=== PATIENT | female | born 1945 | race Caucasian/White ===

== ENCOUNTER 2017-10-07 18:13 | Emergency (ER) | payer MEDICARE, BC ==
[2017-10-07] MEDS ORDERED: Ketorolac Tromethamine 30 MG/ML VIAL ONE (18:58)
--- NOTE | 2017-10-07 21:09 | RAD ---
THREE VIEWS OF THE RIGHT HIP 10/07/17 INDICATION: Right hip pain for two weeks. COMPARISON: None. FINDINGS: There is hernia mesh overlying the right lower quadrant of the abdomen. There is mild degenerative ar throsis of the right hip. No acute fracture or subluxation is evident. IMPRESSION: No acute fracture or subluxation. POS: [facility]
--- NOTE | 2017-10-07 21:14 | RAD ---
THREE VIEWS OF THE LUMBAR SPINE 10/07/17 INDICATION: History of L5 fracture, hernia repair, hysterectomy with right hip pain. FINDINGS: There is mild multilevel disc degenerative and facet osteoarthritic change. No acute fracture or subl uxation is evident. Spinal alignment is preserved. The SI joints are within normal limits. IMPRESSION: Mild spondylosis. No acute osseous abnormality. Examination did not appear appreciably changed from a comparison dated 09/04/15. POS: [facility]
== END 2017-10-07 19:17 | disposition home or self-care (01) ==
LOC: SCSER 18:13
DX: M25.551 Pain in right hip (principal); I48.91 Unspecified atrial fibrillation
CPT/HCPCS: 72100; 96372; J1885

== ENCOUNTER 2017-10-18 12:49 | Emergency (ER) | payer MEDICARE, BC ==
--- NOTE | 2017-10-18 13:58 | RAD ---
CHEST PA AND LATERAL: History: 71-year-old female with cough and fever. Comparison: 06-23-17 FINDINGS: Cardiomegaly with left ICD with heart size somewhat more prominent than on the prior study. Bilateral vascular congestion with increased interstitial parenchymal changes concerning for minimal interstit ial edema. No significant confluent pneumonia. IMPRESSION: Minimal increasing heart size, developing bilateral vascular congestion and minimal interstitial joel a concerning for developing congestive heart failure. No confluent pneumonia. Short term follow up fo r clearance suggested. POS: [facility]
[2017-10-18 14:29] LABS: #Basophils 0.1 thou/uL (0.0-0.2); #Eosinphils 0.2 thou/uL (0.0-0.7); #Lymphocytes 1.6 thou/uL (1.20-3.40); #Monocytes 0.7 thou/uL (0.11-0.59); #Neutrophils 4.7 thou/uL (1.40-6.50); %Basophils 1.3 % (0.0-1.0); %Eosinophils 3.4 % (0.0-10.0); %Lymphocytes 21.9 % (21.0-51.0); %Monocytes 9.3 % (0.0-10.0); Hematocrit 33.9 % (36.0-47.0); Mean Platelet Volume 7.4 fL (7.4-10.4); Red Blood Cell (RBC) Count 3.56 mill/uL (4.20-5.40); White Blood Cell (WBC) Count 7.3 thou/uL (4.8-10.8)
[2017-10-18 14:44] LABS: Anion Gap 13 mmol/L (10-20); BUN (Urea Nitrogen) 10 mg/dL (9.8-20.1); Calc. Creatinine Clearance 0 mL/min (70-130); Calcium 9.3 mg/dL (7.8-10.44); Carbon Dioxide 27 mmol/L (23-31); Chloride 104 mmol/L (98-107); Estimated GFR-MDRD 78
[2017-10-18 14:48] LABS: Troponin I Less than 0.010 ng/mL (< 0.028)
[2017-10-18] MEDS ORDERED: predniSONE 20 MG TAB ONE (16:22)
== END 2017-10-18 16:25 | disposition home or self-care (01) ==
LOC: SCSER 12:49
DX: J45.901 Unspecified asthma with (acute) exacerbation (principal); J06.9 Acute upper respiratory infection, unspecified; B34.9 Viral infection, unspecified; I48.91 Unspecified atrial fibrillation
CPT/HCPCS: 36415; 71020; 80048; 82553; 83880; 84484; 85025; 93005; 94640; J7506; J7620

== ENCOUNTER 2018-02-12 13:49 | Emergency (ER) | payer MEDICARE, BC ==
[2018-02-12] MEDS ORDERED: Orphenadrine Citrate 60 MG/2 ML VIAL ONE (14:20)
[2018-02-12] MEDS ORDERED: HYDROcodone/Acetaminophen 10/325 mg Tablet ONE (14:20)
== END 2018-02-12 14:50 | disposition home or self-care (01) ==
LOC: SCSER 13:49
DX: M62.830 Muscle spasm of back; I48.91 Unspecified atrial fibrillation
CPT/HCPCS: 96372; J2360

== ENCOUNTER 2018-03-26 12:16 | Emergency (ER) | payer MEDICARE, BC ==
[2018-03-26] MEDS ORDERED: Morphine 5 MG/ML SYRINGE ONE (12:49)
[2018-03-26] MEDS ORDERED: Diazepam 5 MG TAB ONE (12:49)
[2018-03-26] MEDS ORDERED: Ketorolac Tromethamine 30 MG/ML VIAL ONE (12:49)
--- NOTE | 2018-03-26 14:57 | CT ---
CT OF ABDOMEN AND PELVIS PERFORMED WITHOUT CONTRAST ENHANCEMENT: Date: 03/26/18 HISTORY: Abdominal and low back pain. Pain extending into bilateral lower extremities. FINDINGS: Heart size is enlarged. Pacemaker device is present. There is some linear atelectasis or scarring in the bases. No confluent infiltrative process. The liver, spleen, and pancreas regions appear unremarkable given the limitations of a noncontrast st udy. The gallbladder has been removed. Right and left adrenal glands, and right and left kidneys are normal in size. No significant periaort ic or mesenteric adenopathy. No signs of bowel obstruction. There is anterior abdominal wall ventral hernia repair mesh noted. Minimal colonic diverticulosis is seen. Changes are slightly more pronounce d in the sigmoid region. No inflammatory process. CT of pelvis was performed without contrast enhancement. An appendix is not identified, consistent wi history. No adenopathy, mass, or free fluid. Some mild prolapse of some small bowel related to mor e of a rectal prolapse is incidentally noted. No obstruction. Review of osseous structures shows no acute bony findings. Fairly minimal arthritic changes are noted of the lumbar spine. IMPRESSION: 1. No acute abnormality to the abdomen or pelvis. 2. Colonic diverticulosis. 3. Other incidental findings as noted above. POS: [facility]
== END 2018-03-26 13:55 | disposition home or self-care (01) ==
LOC: SCSER 12:16
DX: M54.5 Low back pain (principal); I48.91 Unspecified atrial fibrillation; I49.9 Cardiac arrhythmia, unspecified
CPT/HCPCS: 74176; 96372; J2270; J1885

== ENCOUNTER 2019-06-22 08:55 | Outpatient (CLI) | payer MEDICARE, BC ==
[2019-06-22] MEDS ORDERED: Iopamidol 370 76% 100 ML VIAL ONE (09:00)
--- NOTE | 2019-06-22 13:55 | CT ---
CT OF ABDOMEN AND PELVIS PERFORMED WITH INTRAVENOUS CONTRAST ENHANCEMENT: 06/22/19 HISTORY: Patient complaining of pain. History of abdominal hernia repair. COMPARISON: A noncontrast CT performed 03/26/18. The lung bases are clear of any infiltrative process. Small fluid density collection is seen directly posterior to the right atrium. This was present on the previous exam not felt to be of any clinical significance. The liver shows a small low attenuation area along the dome of the liver just above the level of the falciform ligament. This may represent some focal fatty change. It is difficult to see on the previou s noncontrast study, but does appear to have been present at that time. There is a small calcificatio n associated with this. There is an area of more linear enhancement of this in the right lobe of the liver. This may represen t a small area of arterial venous shunting probably just an incidental finding. The spleen and pancre as regions are unremarkable. The gallbladder has been removed. Right and left adrenal glands and right and left kidneys are normal in size. There is no significant periaortic or mesenteric adenopathy. There is an anterior abdominal wall mesh present. Along the supe rior aspect of this in midline, in the epigastric region, is a small fat containing hernia. It is mor e prominent than on the previous exam where it is very difficult to even perceive. There is no hernia tion of bowel. CT OF PELVIS PERFORMED WITH CONTRAST ENHANCEMENT: There is a history of an appendectomy. There is no adenopathy, mass or free fluid. IMPRESSION: 1. Anterior abdominal wall mesh. Fat containing midline epigastric hernia is seen. 2. Post cholecystectomy change. 3. No acute abnormalities of the abdomen or pelvis. POS: [facility]
== END 2019-06-22 08:56 | disposition home or self-care (01) ==
LOC: SCSCT 08:55
PROVIDERS: ATTEND Pain Medicine Pain Medicine
DX: K43.2 Incisional hernia without obstruction or gangrene (principal); K43.9 Ventral hernia without obstruction or gangrene; Z90.49 Acquired absence of other specified parts of digestive tract
CPT/HCPCS: 74177; 82565